=== PATIENT | male | born 2000 ===

== ENCOUNTER 2021-09-16 07:56 | Emergency (ER) | payer OTHER ==
[~2021-09-16] VITALS: Ht 167.6 cm; Wt 81.8 kg
[2021-09-16 08:11] VITALS: TEMP 98.2
[2021-09-16 09:08] VITALS: BP 130/85; PULSE 79
== END 2021-09-16 09:07 | disposition home or self-care (01) ==
LOC: COL.ER 07:56
DX: R20.0 Anesthesia of skin (principal); R20.2 Paresthesia of skin